=== PATIENT | male | born 1950 | race Caucasian/White ===

== ENCOUNTER → 2017-01-25 | Outpatient (CLI) | payer OTHER ==
[~2017-01-25] MED LIST: ALDACTONE25 MG PO; COLACE 100MG C100 MG PO; DULCOLAX10 MG PR; IMIPRAMINE HCL25 MG PO; LIPITOR TAB 1010 MG PO; LOSARTAN POTASS50 MG PO; PERCOCET 10-321 EACH PO; PROTONIX40 MG PO; SYNTHROID150 MCG PO; TOPROL XL 100100 MG PO; TYLENOL 325MG325 MG PO
== END ==
LOC: KOH-I 15:23
DX: I73.89 Other specified peripheral vascular diseases (principal)
CPT/HCPCS: 93925

== ENCOUNTER → 2017-02-08 | Outpatient (CLI) | payer OTHER | LOC: KOH-I 02-01 15:00 | DX: S46.011A Strain of muscle(s) and tendon(s) of the rotator cuff of right shoulder, initial encounter (principal); T84.098A Other mechanical complication of other internal joint prosthesis, initial encounter; Z79.899 Other long term (current) drug therapy; Z96.611 Presence of right artificial shoulder joint | CPT/HCPCS: 73200 ==

== ENCOUNTER → 2022-04-14 | Outpatient (CLI) | payer OTHER | LOC: KOH-I 15:14 | DX: M25.421 Effusion, right elbow (principal) | CPT/HCPCS: 73080 ==

== ENCOUNTER → 2022-05-09 | Outpatient (CLI) | payer OTHER | LOC: US 10:30 | DX: M79.675 Pain in left toe(s) (principal); M79.674 Pain in right toe(s) | CPT/HCPCS: 93925 ==

== ENCOUNTER → 2022-07-20 | Outpatient (CLI) | payer OTHER | LOC: US 14:44 | DX: I10 Essential (primary) hypertension (principal); E78.2 Mixed hyperlipidemia; E11.65 Type 2 diabetes mellitus with hyperglycemia; R53.83 Other fatigue; R42 Dizziness and giddiness; I65.23 Occlusion and stenosis of bilateral carotid arteries | CPT/HCPCS: 93880 ==